=== PATIENT | male | born 1965 | race Caucasian/White ===

== ENCOUNTER 2017-02-05 16:54 | Emergency (ER) | payer BC ==
[~2017-02-05] VITALS: Ht 162.6 cm; Wt 81.5 kg
[~2017-02-05 16:54] MED LIST: ASPI-664 PO; BENA10TA48 PO; CARV12.598 PO; FURO20TA3 PO; HYDR-762 PO; IBUP-1542 PO; ORPH100T PO; PRAS10TA6 PO; SIMV20TA PO
[2017-02-05 17:00] VITALS: Ht 162.6 cm; Wt 81.5 kg
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
--- NOTE | 2017-02-05 18:59 | RADRPT ---
PROCEDURE: XR thoracic Spine. CLINICAL INDICATION: pain TECHNIQUE: AP and lateral views of the thoracic spine were obtained. COMPARISON: No prior studies are available for comparison. FINDINGS: No fracture or significant listhesis is seen. No lytic or blastic lesion is seen. There is mild de generative change of the thoracic spine with small osteophytes and minor endplate irregularities. IMPRESSION: No definite acute bony abnormality. RPTAT: [facility] Tiffany Parker Physician Date Time Electronically viewed and signed by Tiffany Parker, Physician on 02/05/2017 18:58 LE/
--- NOTE | 2017-02-05 19:00 | RADRPT ---
PROCEDURE: XR Lumbar Spine. CLINICAL INDICATION: pain TECHNIQUE: 3 views of the lumbar spine were obtained. COMPARISON: No prior studies are available for comparison. FINDINGS: There is mild degenerative change of the lumbar spine with small osteophytes. Minimal L5-S1 retroli sthesis is seen with slight L5-S1 disk space narrowing. No lytic or blastic lesion is seen. No def inite acute fracture. No evidence for spondylolysis. IMPRESSION: No definite acute bony abnormality.. Minimal degenerative change. RPTAT: [facility] Tiffany Parker Physician Date Time Electronically viewed and signed by Tiffany Parker Physician on 02/05/2017 18:59 LE/
[2017-02-05] MEDS ORDERED: IBUP-1542 PO (19:12)
== END 2017-02-05 19:22 | disposition home or self-care (01) ==
LOC: FTE 16:54
DX: S39.92XA Unspecified injury of lower back, initial encounter (principal); I25.10 Atherosclerotic heart disease of native coronary artery without angina pectoris; V43.52XA Car driver injured in collision with other type car in traffic accident, initial encounter; Z98.61 Coronary angioplasty status; Z79.82 Long term (current) use of aspirin
CPT/HCPCS: 72072; 72100; Z7502